=== PATIENT | female | born 1975 | race Caucasian/White ===

== ENCOUNTER 2017-03-12 15:14 | Emergency (ER) | payer BC, MEDICAID ==
[~2017-03-12] VITALS: Ht 160 cm; Wt 90.7 kg
[~2017-03-12 15:14] MED LIST: DAPS25TA PO
[2017-03-12 15:20] VITALS: BP 135/80
[2017-03-12] MEDS ORDERED: CYCLOBENZAPRINE 10 MG TABLET. PO ONE (15:45)
[2017-03-12] MEDS ORDERED: CYCL10TA2 PO (15:48)
[2017-03-12] MEDS ORDERED: METH4TAB2 PO (15:48)
[2017-03-12] MEDS ORDERED: DICL100G7 TP (15:48)
--- NOTE | 2017-03-12 15:48 | PHYS DOC ---
Past Medical History Past Medical History: HIV, TB Past Surgical History: , Tubal ligation, Other Additional Past Surgical Histo: RIGHT ACL REPAIR Alcohol Use: None Drug Use: Marijuana Adult General Chief Complaint Chief Complaint: ELBOW PROBLEM HPI HPI Patient is a 41 year old female with hx of HIV on treatment and who presents with left elbow pain since December 2016. Patient denies any injuries. She states she has followed up with her own primary care doctor who did x-rays of the left elbow in they were negative. She states she was referred to an orthopedic doctor who she saw her on Wednesday, she states the orthopedic doctor at informed her there is nothing he can do for the elbow because there was no acute findings on xray. She states that the orthopedic doctor instructed her to continue taking Aleve. Patient states it's not helping. Patient denies any injury. Patient states she followed up with the neuro doctor who gave her gabapentin for her pain. She states she has poor sensation to the left upper extremity but follows up with the neurologist. She states she has a new grandbaby coming in September and wants to be able to lift her grandbaby. She states nobody has given her any muscle relaxer and attempting to help with the pain. She states she has been given steroid injections to the left wrist before and it did not help with the pain so her doctor could not recommend it for the elbow. Review of Systems Review of Systems Constitutional: Denies fever or chills [] Eyes: Denies change in visual acuity, redness, or eye pain [] HENT: Denies nasal congestion or sore throat [] Musculoskeletal: Left elbow pain Integument: Denies rash or skin lesions [] Neurologic: Denies headache, focal weakness or sensory changes [] Endocrine: Denies polyuria or polydipsia [] Current Medications Current Medications Current Medications Medications (Trade) Dose Ordered Sig/David Start Time Stop Time Status Last Admin Dose Admin Cyclobenzaprine HCl (Flexeril) 10 mg 1X ONCE 03/12/17 15:45 03/12/17 15:46 Prednisone (Prednisone) 60 mg 1X ONCE 03/12/17 16:00 03/12/17 16:01 Allergies Allergies Allergies Coded Allergies Type Severity Reaction Last Updated Verified Penicillins Allergy Unknown Swelling 08/08/14 No Sulfa (Sulfonamide Antibiotics) Allergy Unknown Hives 08/08/14 No latex Allergy Unknown Hives 08/08/14 No meperidine Allergy Unknown Itching 08/08/14 No nitrofurantoin Allergy Unknown Hives 08/08/14 No povidone-iodine Allergy Unknown Itching 08/08/14 No shellfish derived Allergy Unknown Swelling 08/08/14 No Physical Exam Physical Exam Constitutional: Well developed, well nourished, no acute distress, non-toxic appearance. [] HENT: Normocephalic, atraumatic, bilateral external ears normal, oropharynx moist, no oral exudates, nose normal. [] Eyes: PERRLA, EOMI, conjunctiva normal, no discharge. [] Skin: Warm, dry, no erythema, no rash. [] Back: No tenderness, no CVA tenderness. [] Extremities: Left elbow with no edema and no ecchymosis no obvious deformity. No tenderness on palpation of the left elbow. Full active and passive range of motion to the left elbow. Patient able to plantarflex and a flex the left forearm with no difficulties. +2 left radial pulse. Cap refill less than 2 seconds the left upper extremity. Sensation intact to the left upper extremity. Neurologic: Alert and oriented X 3, normal motor function, normal sensory function, no focal deficits noted. [] Psychologic: Affect normal, judgement normal, mood normal. [] Current Patient Data Vital Signs Vital Signs Date Time Temp Pulse Resp B/P (MAP) Pulse Ox O2 Delivery O2 Flow Rate FiO2 03/12/17 15:20 98.2 68 20 98 Room Air 98.2 EKG EKG [] Radiology/Procedures Radiology/Procedures [] Course & Med Decision Making Course & Med Decision Making Pertinent Labs and Imaging studies reviewed. (See chart for details) Patient is in the ED with acute on chronic left elbow pain. She has already had x-rays and followed up with an orthopedic doctor this week. I spoke to patient at length about her symptoms. Recommended she continues taking Aleve. Give her prescription for Voltaren, Flexeril and Medrol Dosepak. Provided another orthopedic doctor in case she does not want to follow-up with her doctor at . Patti Disclaimer Dragon Disclaimer This electronic medical record was generated, in whole or in part, using a voice recognition dictation system. Departure Departure Impression: Primary Impression: Left elbow pain Disposition: 01 HOME, SELF-CARE Condition: STABLE Referrals: YANETH GERMAIN (PCP) Follow-up with your own doctor in one week TITI HORNE MD follow up with your doctor in one week Patient Instructions: Musculoskeletal Pain Additional Instructions: You were seen for left elbow pain. We highly recommend you follow-up with an orthopedic doctor. Continue following up with your own primary care doctor as well. Continue taking Aleve as needed for pain and the other new medicines we put you on Scripts Cyclobenzaprine Hcl (CYCLOBENZAPRINE HCL) 10 Mg Tablet 1 TAB PO TID, #30 TAB Prov: TWILA VALLADARES APRN 03/12/17 Methylprednisolone (MEDROL) 4 Mg Tab.ds.pk 1 PKG PO UD, #1 PKG Prov: TWILA VALLADARES APRN 03/12/17 Diclofenac Sodium (VOLTAREN) 100 Gm Gel..gram. 1 GM TP QID, #100 GM 2 Refills Prov: TWILA VALLADARES APRN 03/12/17 TWILA VALLADARES APRN March 12, 2017 15:48
[2017-03-12] MEDS ORDERED: predniSONE 20 MG TABLET PO ONE (16:00)
== END 2017-03-12 16:05 | disposition home or self-care (01) ==
LOC: ER 16:03
DX: M25.522 Pain in left elbow (principal); F12.10 Cannabis abuse, uncomplicated; Z21 Asymptomatic human immunodeficiency virus [HIV] infection status; Z88.0 Allergy status to penicillin; Z88.2 Allergy status to sulfonamides; Z88.8 Allergy status to other drugs, medicaments and biological substances; Z88.6 Allergy status to analgesic agent; Z91.041 Radiographic dye allergy status; Z91.040 Latex allergy status; Z91.013 Allergy to seafood
CPT/HCPCS: 99283; J7512

== ENCOUNTER 2018-02-28 08:02 | Emergency (ER) | payer OTHER, MEDICAID, BC ==
[2018-02-28] MEDS: KETOROLAC TROMETHAMINE 10 MG TABLET PO (08:34)
[2018-02-28] MEDS: diazePAM 5 MG TABLET PO (08:34)
== END 2018-02-28 09:15 | disposition home or self-care (01) ==
LOC: ER 08:02
DX: M25.521 Pain in right elbow (principal); M25.511 Pain in right shoulder; M79.631 Pain in right forearm; F12.10 Cannabis abuse, uncomplicated; Z88.0 Allergy status to penicillin; Z88.2 Allergy status to sulfonamides; Z88.1 Allergy status to other antibiotic agents; Z91.041 Radiographic dye allergy status; Z91.040 Latex allergy status; Z91.013 Allergy to seafood
CPT/HCPCS: 99283

== ENCOUNTER 2020-04-11 10:56 | Emergency (ER) | payer MEDICAID, OTHER ==
[~2020-04-11] VITALS: Ht 160 cm; Wt 100.0 kg
[~2020-04-11 10:56] MED LIST changes: +CYCL10TA2 PO; +DICL100G54 TP; +KETO10TA PO; +METH4TAB2 PO
--- NOTE | 2020-04-11 11:56 | RAD ---
EXAM: FOOT LEFT 3V 04/11/2020 11:11 AM CLINICAL INDICATION:Fifth toe pain and bruising COMPARISON:None TECHNIQUE:3 views of the left foot FINDINGS:There is a minimally displaced oblique fracture of the little toe proximal phalanx shaft. No intra-articular extension. No other acute fracture or malalignment. There is sequela of old lateral ankle injury. Mild soft tissue swelling along the fifth MTP joint. IMPRESSION:Minimally displaced fracture of the little toe proximal phalanx. Electronically signed by: Rosangela Ennis MD (04/11/2020 11:53 AM) [id number]
[2020-04-11] MEDS ORDERED: HYDR-3164 PO (12:14)
--- NOTE | 2020-04-11 12:14 | PHYS DOC ---
Past Medical History Past Medical History: Arthritis, HIV, TB Past Surgical History: , Tubal ligation, Other Additional Past Surgical Histo: RIGHT ACL REPAIR Smoking Status: Current Every Day Smoker Alcohol Use: None Drug Use: Marijuana, Methamphetamine General Adult EDM: Chief Complaint: TOE PROBLEM HPI: HPI: Patient is a 44 year old female presents with report of left pinky toe pain and swelling. Reports worse with ambulation. Reports originally injured it while shopping at grocery store on 04/08/20. Reports she accidentally "rammed" her toe into a wooden pallet on the ground. Reports was wearing flip flops. Reports signficiant pain and bruising/swelling followed. Patient reports she had delayed evaluation because she thought it would get better on it's own. Reports pain and swelling still presented and therefore decided to present to the ED for evaluation. Review of Systems: Review of Systems: Constitutional: Denies fever or chills Musculoskeletal: Denies neck pain; reports pain to left pinky toe Integument: Denies laceration; reports bruising and swelling to left pinky toe Neurologic: Denies headache, focal weakness or sensory changes Complete systems were reviewed and found to be within normal limits, except as documented in this note. Allergies: Allergies: Allergies Coded Allergies Type Severity Reaction Last Updated Verified Penicillins Allergy Intermediate Swelling 02/28/18 No Sulfa (Sulfonamide Antibiotics) Allergy Intermediate Hives 02/28/18 No latex Allergy Intermediate Hives 02/28/18 No nitrofurantoin Allergy Intermediate Hives 02/28/18 No shellfish derived Allergy Intermediate Swelling 02/28/18 No meperidine Adverse Reaction Unknown Itching 02/28/18 No povidone-iodine Adverse Reaction Unknown Itching 02/28/18 No Physical Exam: PE: Constitutional: Well developed, well nourished, no acute distress, non-toxic appearance HENT: Normocephalic, atraumatic Eyes: Conjunctiva normal, no discharge Neck: Normal range of motion, no tenderness, supple Cardiovascular: Left PT and DP +2, CR < 2 sec Lungs & Thorax: No respiratory distress, equal chest rise and fall Skin: Warm, dry, no erythema, bruising noted as below Extremities: Left 5th toe with swelling, bruising, and tenderness on palpation Neurologic: Alert and oriented X 3, normal motor function, normal sensory function, no focal deficits noted Psychologic: Affect normal, judgment normal Current Patient Data: Vital Signs: Vital Signs Date Time Temp Pulse Resp B/P (MAP) Pulse Ox O2 Delivery O2 Flow Rate FiO2 04/11/20 11:05 98.2 71 16 173/97 (122) 98 Room Air 98.2 EKG: EKG: [] Radiology/Procedures: Radiology/Procedures: PROCEDURE: FOOT LEFT 3V EXAM: FOOT LEFT 3V 04/11/2020 11:11 AM CLINICAL INDICATION:Fifth toe pain and bruising COMPARISON:None TECHNIQUE:3 views of the left foot FINDINGS:There is a minimally displaced oblique fracture of the little toe proximal phalanx shaft. No intra-articular extension. No other acute fracture or malalignment. There is sequela of old lateral ankle injury. Mild soft tissue swelling along the fifth MTP joint. IMPRESSION:Minimally displaced fracture of the little toe proximal phalanx. Electronically signed by: Rosangela Ennis MD (04/11/2020 11:53 AM) [id number] Course & Med Decision Making: Course & Med Decision Making Pertinent Imaging studies reviewed. (See chart for details) Patient presents with history of pain to left 5th toe. Bruising/swelling noted. XR with findings confirming fracture to proximal phalanx. ICE applied. Post op shoe provided with crutches. Patient stable for discharge with outpatient follow-up with PCP/Orthopedics. Discussed findings and plan with patient, who acknowledges understanding and agreement. Patti Disclaimer: Patti Disclaimer: This electronic medical record was generated, in whole or in part, using a voice recognition dictation system. Departure Departure Impression: Primary Impression: Toe fracture, left Qualified Codes: S92.512A - Displaced fracture of proximal phalanx of left lesser toe(s), initial encounter for closed fracture Disposition: HOME, SELF-CARE Condition: STABLE Referrals: KIRA DIAZ MD (PCP) JAZMÍN JEROME MD Patient Instructions: Cast or Splint Care, [id number], Crutch Use, [id number], Toe Fracture, [id number] Scripts Hydrocodone/Apap 5-325 (NORCO 5-325 TABLET) 1 Each Tablet 0.5-1 TAB PO PRN Q6HRS PRN for PAIN, #10 TAB 0 Refills Prov: JOSSELINE MONTEJO DO 04/11/20 Justicifation of Admission Dx: Justifications for Admission: Justification of Admission Dx: N/A Splinting Splinting : Location: Left foot Pre-Made Type: Post op shoe Pre-Proc Neuro Vasc Exam: normal Post-Proc Neuro Vasc Exam: normal, unchanged from pre-exam JOSSELINE MONTEJO DO Apr 11, 2020 12:14
[2020-04-11 12:20] VITALS: BP 157/93
== END 2020-04-11 12:25 | disposition home or self-care (01) ==
LOC: ER 10:56
DX: S92.512A Displaced fracture of proximal phalanx of left lesser toe(s), initial encounter for closed fracture (principal); R60.0 Localized edema; M19.90 Unspecified osteoarthritis, unspecified site; A15.9 Respiratory tuberculosis unspecified; F17.200 Nicotine dependence, unspecified, uncomplicated; F12.90 Cannabis use, unspecified, uncomplicated; Z98.890 Other specified postprocedural states; Z21 Asymptomatic human immunodeficiency virus [HIV] infection status; X58.XXXA Exposure to other specified factors, initial encounter; Y93.89 Activity, other specified; Y92.89 Other specified places as the place of occurrence of the external cause; Y99.8 Other external cause status
CPT/HCPCS: 73630; 99283

== ENCOUNTER 2020-08-26 09:04 | Emergency (ER) | payer OTHER ==
[~2020-08-26] VITALS: Ht 160 cm; Wt 98.0 kg
[~2020-08-26 09:04] MED LIST changes: +HYDR-3164 PO
[2020-08-26] MEDS ORDERED: KETOROLAC 30 MG/ML VIAL. IVP ONE (11:00)
[2020-08-26 11:04] LABS: COLOR,URINE RED
[2020-08-26 11:05] LABS: CLARITY,URINE TURBID
[2020-08-26 11:08] LABS: BACTERIA,URINE FEW /HPF (0-FEW); RBC,URINE TNTC /HPF (0-2); WBC,URINE FIELD OBSCURED /HPF (0-4)
--- NOTE | 2020-08-26 11:33 | PHYS DOC ---
Past Medical History Past Medical History: Arthritis, HIV, TB Past Surgical History: , Tubal ligation, Other Additional Past Surgical Histo: RIGHT ACL REPAIR Smoking Status: Current Every Day Smoker Alcohol Use: None Drug Use: Marijuana, Methamphetamine General Adult EDM: Chief Complaint: FLANK PAIN HPI: HPI: Patient is a 44 year old female who presented to ER for evaluation of right flank pain that radiated to her right hip area started last night. Patient says she started her period this morning and feels it might be her period but the pain is more severe and persistent. Patient denies any fever, no cough, no nausea vomiting. Review of Systems: Review of Systems: Constitutional: Denies fever or chills. [] Eyes: Denies change in visual acuity. [] HENT: Denies nasal congestion or sore throat. [] Respiratory: Denies cough or shortness of breath. [] Cardiovascular: Denies chest pain or edema. [] GI: Positive for right flank pain, no nausea vomiting, no diarrhea : Denies dysuria. [] Musculoskeletal: Denies back pain or joint pain. [] Integument: Denies rash. [] Neurologic: Denies headache, focal weakness or sensory changes. [] Endocrine: Denies polyuria or polydipsia. [] Lymphatic: Denies swollen glands. [] Psychiatric: Denies depression or anxiety. [] Heart Score: Risk Factors: Risk Factors: DM, Current or recent (<one month) smoker, HTN, HLP, family history of CAD, obesity. Risk Scores: Score 0 - 3: 2.5% MACE over next 6 weeks - Discharge Home Score 4 - 6: 20.3% MACE over next 6 weeks - Admit for Clinical Observation Score 7 - 10: 72.7% MACE over next 6 weeks - Early Invasive Strategies Current Medications: Current Medications Medications (Trade) Dose Ordered Sig/David Start Time Stop Time Status Last Admin Dose Admin Ketorolac Tromethamine (Toradol 30mg Vial) 30 mg 1X ONCE 08/26/20 11:00 08/26/20 11:01 DC 08/26/20 11:12 30 MG Allergies: Allergies: Allergies Coded Allergies Type Severity Reaction Last Updated Verified Penicillins Allergy Intermediate Swelling 02/28/18 No Sulfa (Sulfonamide Antibiotics) Allergy Intermediate Hives 02/28/18 No latex Allergy Intermediate Hives 02/28/18 No nitrofurantoin Allergy Intermediate Hives 02/28/18 No shellfish derived Allergy Intermediate Swelling 02/28/18 No meperidine Adverse Reaction Unknown Itching 02/28/18 No povidone-iodine Adverse Reaction Unknown Itching 02/28/18 No Physical Exam: PE: Constitutional: Well developed, well nourished, no acute distress, non-toxic appearance. [] HENT: Normocephalic, atraumatic, bilateral external ears normal, oropharynx moist, no oral exudates, nose normal. [] Eyes: PERRLA, EOMI, conjunctiva normal, no discharge. [] Neck: Normal range of motion, no tenderness, supple, no stridor. [] Cardiovascular:Heart rate regular rhythm, no murmur [] Lungs & Thorax: Bilateral breath sounds clear to auscultation [] Abdomen: Bowel sounds normal, soft, no tenderness, no masses, no pulsatile masses. [] Skin: Warm, dry, no erythema, no rash. [] Back: No tenderness, no CVA tenderness. [] Extremities: No tenderness, no cyanosis, no clubbing, ROM intact, no edema. [] Neurologic: Alert and oriented X 3, normal motor function, normal sensory function, no focal deficits noted. [] Psychologic: Affect normal, judgement normal, mood normal. [] Current Patient Data: Labs: Laboratory Tests Test 08/26/20 10:09 08/26/20 10:47 POC Urine HCG, Qualitative Hcg negative (Negative) Urine Collection Type Unknown Urine Color Red Urine Clarity Turbid Urine pH (<5.0-8.0) Urine Specific [place] (1.000-1.030) Urine Protein mg/dL (NEG-TRACE) Urine Glucose (UA) mg/dL (NEG) Urine Ketones (Stick) mg/dL (NEG) Urine Blood (NEG) Urine Nitrite (NEG) Urine Bilirubin (NEG) Urine Urobilinogen Dipstick mg/dL (0.2 mg/dL) Urine Leukocyte Esterase (NEG) Urine RBC Tntc /HPF (0-2) Urine WBC Field obscured /HPF (0-4) Urine Squamous Epithelial Cells Occ /LPF Urine Bacteria Few /HPF (0-FEW) Urine Mucus Slight /LPF Vital Signs: Vital Signs Date Time Temp Pulse Resp B/P (MAP) Pulse Ox O2 Delivery O2 Flow Rate FiO2 08/26/20 09:46 97.7 52 16 172/97 (122) 97 Room Air 97.7 EKG: EKG: [] Radiology/Procedures: Radiology/Procedures: [facility] [address] [place] [address] IMAGING REPORT Signed PATIENT: COLT RENEE ACCOUNT: [id number] : 1975 LOCATION: ER AGE: 44 SEX: F EXAM STATUS: REG ER ORD. PHYSICIAN: ALYSIA FERNANDEZ DO REASON: RIGHT FLANK PAIN PROCEDURE: CT ABDOMEN PELVIS WO CONTRAST Examination: CT ABDOMEN PELVIS WO CONTRAST History: Reason: RIGHT FLANK PAIN / Comparison/Correlation: None Findings: Axial images of the abdomen and pelvis were obtained without contrast. Sagittal and coronal reformatted images were provided. Calcified granulomas involving the left lung base. Marked fatty infiltration of the liver is present. Gallbladder fossa is unremarkable. Spleen is unremarkable. Small hiatal hernia is present. Pancreas is normal. Adrenal glands are overall unremarkable although there is a 1.6 cm diameter left adrenal gland nodule with density compatible with a benign adenoma. No radiopaque collecting system calculi identified. No enlarged abdominal or pelvic lymph nodes. No bowel obstruction or extraluminal gas. Appendix is normal. Urinary bladder is mostly decompressed. Uterus has a nodular contour which may represent fibroid involvement. Significant L5-S1 disc space narrowing is present. This osteophyte complex is notable. Impression: Fatty infiltration of the liver. No radiopaque collecting system calculi or evidence of collecting system obstruction. Appendix is normal. No inflammatory process. Fibroid uterus suspected. PQRS Compliance Statement: One or more of the following individualized dose reduction techniques were utilized for this examination: 1. Automated exposure control 2. Adjustment of the mA and/or kV according to patient size 3. Use of iterative reconstruction technique Electronically signed by: Jairon Briggs MD (08/26/2020 11:46 AM) [id number] DICTATED and SIGNED BY: JAIRON BRIGGS MD DATE: 08/26/20 1146 Course & Med Decision Making: Course & Med Decision Making Pertinent Labs and Imaging studies reviewed. (See chart for details) [] Dragon Disclaimer: Dragon Disclaimer: This electronic medical record was generated, in whole or in part, using a voice recognition dictation system. Departure Departure Impression: Primary Impression: Fibroid, uterine Disposition: 01 DC HOME SELF CARE/HOMELESS Condition: IMPROVED Referrals: KIRA DIAZ MD (PCP) PARKER PAGAN Jr, MD please call this [facility] doctor for outpatient follow up next week. Patient Instructions: Fibroids, [id number] Additional Instructions: Thank you for visiting our Emergency Department. We appreciate you trusting us with your care. If any additional problems come up don't hesitate to return to visit us. Please follow up with your primary care provider so they can plan additional care if needed and know about the problem that you had. If symptoms worsen come back to the Emergency Department. Any concerning symptoms that start such as chest pain, shortness of air, weakness or numbness on one side of the body, running high fevers or any other concerning symptoms return to the ER. Scripts Tramadol Hcl (TRAMADOL HCL) 50 Mg Tablet 50 MG PO Q6HRS PRN for PAIN, #15 TAB Prov: ALYSIA FERNANDEZ DO 08/26/20 Naproxen Sodium (ANAPROX DS) 550 Mg Tablet 1 TAB PO BID PRN for PAIN for 15 Days, #30 TAB 0 Refills Prov: ALYSIA FERNANDEZ DO 08/26/20 ALSYIA FERNANDEZ DO Aug 26, 2020 11:33
--- NOTE | 2020-08-26 11:49 | RAD ---
Examination: CT ABDOMEN PELVIS WO CONTRAST History: Reason: RIGHT FLANK PAIN / Comparison/Correlation: None Findings: Axial images of the abdomen and pelvis were obtained without contrast. Sagittal and coronal reformatted images were provided. Calcified granulomas involving the left lung base. Marked fatty infiltration of the liver is present. Gallbladder fossa is unremarkable. Spleen is unremarkable. Small hiatal hernia is present. Pancreas is normal. Adrenal glands are overall unremarkable although there is a 1.6 cm diameter left adrenal gland nodule with density compatible with a benign adenoma. No radiopaque collecting system calculi identified. No enlarged abdominal or pelvic lymph nodes. No bowel obstruction or extraluminal gas. Appendix is normal. Urinary bladder is mostly decompressed. Uterus has a nodular contour which may represent fibroid involvement. Significant L5-S1 disc space narrowing is present. This osteophyte complex is notable. Impression: Fatty infiltration of the liver. No radiopaque collecting system calculi or evidence of collecting system obstruction. Appendix is normal. No inflammatory process. Fibroid uterus suspected. PQRS Compliance Statement: One or more of the following individualized dose reduction techniques were utilized for this examination: 1. Automated exposure control 2. Adjustment of the mA and/or kV according to patient size 3. Use of iterative reconstruction technique Electronically signed by: Jairon Marin MD (08/26/2020 11:46 AM) [id number]
[2020-08-26 12:53] VITALS: BP 180/94
[2020-08-26] MEDS ORDERED: NAPR-682 PO (12:56)
[2020-08-26] MEDS ORDERED: TRAM50TA PO (12:56)
== END 2020-08-26 13:40 | disposition home or self-care (01) ==
LOC: ER 09:04
DX: D25.9 Leiomyoma of uterus, unspecified (principal); R10.9 Unspecified abdominal pain; M19.90 Unspecified osteoarthritis, unspecified site; F17.200 Nicotine dependence, unspecified, uncomplicated; F12.90 Cannabis use, unspecified, uncomplicated; Z98.890 Other specified postprocedural states; Z98.51 Tubal ligation status
CPT/HCPCS: 74176; 81001; 81025; 87086; 96374; 99285; J1885

== ENCOUNTER 2020-09-24 11:39 | Emergency (ER) | payer OTHER ==
[~2020-09-24] VITALS: Ht 160 cm; Wt 100.0 kg
[~2020-09-24 11:39] MED LIST changes: +NAPR-682 PO; +TRAM50TA PO
[2020-09-24 12:19] VITALS: BP 186/96
[2020-09-24] MEDS ORDERED: predniSONE 20 MG TABLET PO ONE (13:00)
[2020-09-24] MEDS ORDERED: ACETAMINOPHEN/CODEINE 300/30MG TABLET. PO ONE (13:15)
--- NOTE | 2020-09-24 13:16 | RAD ---
INDICATION: Reason: cough / Spl. Instructions: / History: COMPARISON: None. FINDINGS: Single view of chest obtained. Numerous nodular opacities are seen within the lungs most prominent at the right upper lung. Cardiac silhouette is unremarkable. IMPRESSION: * Numerous nodular opacities within the right greater than left lung. Differential considerations would include infectious or inflammatory nodules or sequela of granulomatous disease but neoplastic causes are also within the differential. Would consider obtaining CT of the chest to further assess whether these are calcified or noncalcified. Electronically signed by: Alo Woods MD (09/24/2020 1:13 PM) [id number]
--- NOTE | 2020-09-24 14:18 | RAD ---
CT CHEST WO CONTRAST INDICATION: cough, SOA COMPARISON STUDY: Radiograph 09/24/2020. TECHNIQUE: Unenhanced axial images were obtained through the lungs and upper abdomen. Coronal and sagittal multiplanar reconstructions were also obtained. PQRS compliance statement: One or more of the following individualized dose reduction techniques were utilized for this examination: 1. Automated exposure control 2. Adjustment of the mA and/or kV according to patient size 3. Use of iterative reconstruction technique FINDINGS: Lungs and Airways: Numerous calcified and noncalcified small pulmonary nodules involving the right upper lobe, and to a lesser extent the left upper lobe. Paraseptal and centrilobular emphysema. Normal central airways. Pleura: The pleural spaces are normal. Heart and Mediastinum: The visualized thyroid gland is normal in size and attenuation. No axillary or supraclavicular lymphadenopathy. No mediastinal, hilar or retrocrural lymphadenopathy. Normal cardiac size. No pericardial effusion. Coronary artery atherosclerotic disease. The great vessels of the thorax are normal. Abdomen: The visualized abdominal organs demonstrate no abnormality. Bones and Soft Tissues: Degenerative changes of the spine. IMPRESSION: 1. Numerous calcified and noncalcified pulmonary nodules involving the right upper lobe and to lesser extent the left upper lobe. Imaging features favor remote granulomatous disease, however consider 3-6 month follow-up unenhanced chest CT to assess stability of noncalcified nodules, given emphysema. 2. Coronary artery atherosclerotic disease. Electronically signed by: Bora Escalona MD (09/24/2020 2:16 PM) [id number]
--- NOTE | 2020-09-24 15:08 | PHYS DOC ---
Past Medical History Past Medical History: Arthritis, HIV, Hypertension, TB Past Surgical History: , Tubal ligation, Other Additional Past Surgical Histo: RIGHT ACL REPAIR Smoking Status: Current Every Day Smoker Alcohol Use: None Drug Use: Marijuana, Methamphetamine General Adult EDM: Chief Complaint: HEADACHE HPI: HPI: Patient is a 44 year old female with a history of HIV, currently under control per her statement, hypertension, tuberculosis when he had active infection for her HIV, who presents to the ED today complaining of 6 out of 10 frontal headache with sneezing and a cough for 3 days. Patient reports history of smoking. Denies any fever. Denies any nausea vomiting. Denies any chest pain or shortness of breath. Denies anything specifically exacerbating or relieving his symptoms. Patient describes the headache as throbbing and intermittent. Review of Systems: Review of Systems: Constitutional: Denies fever or chills. [] Eyes: Denies change in visual acuity. [] HENT: Reports sneezing. Denies nasal congestion or sore throat. [] Respiratory: Reports cough, denies shortness of breath. [] Cardiovascular: Denies chest pain or edema. [] GI: Denies abdominal pain, nausea, vomiting, bloody stools or diarrhea. [] : Denies dysuria. [] Musculoskeletal: Denies back pain or joint pain. [] Integument: Denies rash. [] Neurologic: Reports headache, denies focal weakness or sensory changes. [] Psychiatric: Denies depression or anxiety. [] Heart Score: Risk Factors: Risk Factors: DM, Current or recent (<one month) smoker, HTN, HLP, family history of CAD, obesity. Risk Scores: Score 0 - 3: 2.5% MACE over next 6 weeks - Discharge Home Score 4 - 6: 20.3% MACE over next 6 weeks - Admit for Clinical Observation Score 7 - 10: 72.7% MACE over next 6 weeks - Early Invasive Strategies Current Medications: Current Medications Medications (Trade) Dose Ordered Sig/David Start Time Stop Time Status Last Admin Dose Admin Acetaminophen/ Codeine Phosphate (Tylenol #3) 1 tab 1X ONCE 09/24/20 13:15 09/24/20 13:16 DC 09/24/20 13:15 1 TAB Prednisone (Prednisone) 60 mg 1X ONCE 09/24/20 13:00 09/24/20 13:01 DC 09/24/20 13:15 60 MG Allergies: Allergies: Allergies Coded Allergies Type Severity Reaction Last Updated Verified Penicillins Allergy Intermediate Swelling 02/28/18 No Sulfa (Sulfonamide Antibiotics) Allergy Intermediate Hives 02/28/18 No latex Allergy Intermediate Hives 02/28/18 No nitrofurantoin Allergy Intermediate Hives 02/28/18 No shellfish derived Allergy Intermediate Swelling 02/28/18 No meperidine Adverse Reaction Unknown Itching 02/28/18 No povidone-iodine Adverse Reaction Unknown Itching 02/28/18 No Physical Exam: PE: Constitutional: Well developed, well nourished, no acute distress, non-toxic appearance. [] HENT: Normocephalic, atraumatic, bilateral external ears normal, oropharynx moist, no oral exudates, nose normal. [] Eyes: PERRLA, EOMI, conjunctiva normal, no discharge. [] Neck: Normal range of motion, no tenderness, supple, no stridor. [] Cardiovascular:Heart rate regular rhythm, no murmur [] Lungs & Thorax: Bilateral breath sounds clear to auscultation [] Abdomen: Bowel sounds normal, soft, no tenderness, no masses, no pulsatile masses. [] Skin: Warm, dry, no erythema, no rash. [] Back: No tenderness, no CVA tenderness. [] Extremities: No tenderness, no cyanosis, no clubbing, ROM intact, no edema. [] Neurologic: Alert and oriented X 3, normal motor function, normal sensory function, no focal deficits noted. Cranial nerves II through XII intact Psychologic: Affect normal, judgement normal, mood normal. [] Current Patient Data: Vital Signs: Vital Signs Date Time Temp Pulse Resp B/P (MAP) Pulse Ox O2 Delivery O2 Flow Rate FiO2 09/24/20 12:19 98.3 68 20 186/96 (126) 97 Room Air 98.3 EKG: EKG: [] Radiology/Procedures: Radiology/Procedures: []PROCEDURE: CHEST AP ONLY INDICATION: Reason: cough / Spl. Instructions: / History: COMPARISON: None. FINDINGS: Single view of chest obtained. Numerous nodular opacities are seen within the lungs most prominent at the right upper lung. Cardiac silhouette is unremarkable. IMPRESSION: * Numerous nodular opacities within the right greater than left lung. Differential considerations would include infectious or inflammatory nodules or sequela of granulomatous disease but neoplastic causes are also within the differential. Would consider obtaining CT of the chest to further assess whether these are calcified or noncalcified. Electronically signed by: Dominguez Henley MD (09/24/2020 1:13 PM) [id number] DICTATED and SIGNED BY: DOMINGUEZ HENLEY MD DATE: 09/24/20 [id number] PROCEDURE: CT CHEST WO CONTRAST CT CHEST WO CONTRAST INDICATION: cough, SOA COMPARISON STUDY: Radiograph 09/24/2020. TECHNIQUE: Unenhanced axial images were obtained through the lungs and upper abdomen. Coronal and sagittal multiplanar reconstructions were also obtained. PQRS compliance statement: One or more of the following individualized dose reduction techniques were utilized for this examination: 1. Automated exposure control 2. Adjustment of the mA and/or kV according to patient size 3. Use of iterative reconstruction technique FINDINGS: Lungs and Airways: Numerous calcified and noncalcified small pulmonary nodules involving the right upper lobe, and to a lesser extent the left upper lobe. Paraseptal and centrilobular emphysema. Normal central airways. Pleura: The pleural spaces are normal. Heart and Mediastinum: The visualized thyroid gland is normal in size and attenuation. No axillary or supraclavicular lymphadenopathy. No mediastinal, hilar or retrocrural lymphadenopathy. Normal cardiac size. No pericardial effusion. Coronary artery atherosclerotic disease. The great vessels of the thorax are normal. Abdomen: The visualized abdominal organs demonstrate no abnormality. Bones and Soft Tissues: Degenerative changes of the spine. IMPRESSION: 1. Numerous calcified and noncalcified pulmonary nodules involving the right upper lobe and to lesser extent the left upper lobe. Imaging features favor remote granulomatous disease, however consider 3-6 month follow-up unenhanced chest CT to assess stability of noncalcified nodules, given emphysema. 2. Coronary artery atherosclerotic disease. Electronically signed by: Amando Escalona MD (09/24/2020 2:16 PM) [id number] DICTATED and SIGNED BY: AMANDO ESCALONA MD DATE: 09/24/20 [id number] Course & Med Decision Making: Course & Med Decision Making Pertinent Labs and Imaging studies reviewed. (See chart for details) This is a 44-year-old female patient presenting to the ED today with cough, headache, sneezing, symptoms for 3 days. Patient was tested for COVID-19. Chest x-ray interpreted by radiologist was noted for numerous opacities within the right greater than left lung, radiology recommended CT of the chest. CT of the chest noted for numerous calcified and noncalcified pulmonary nodules involving the right upper lobe and to lesser extent the left upper lobe. Imaging features favor remote granulomatous disease, however consider 3-6 month follow- up unenhanced chest CT to assess stability of noncalcified nodules,given emphysema. Coronary artery atherosclerotic disease. Patient reports history of TB. Was discharged to home follow-up with PCP. Instructed to quarantine herself. Dragon Disclaimer: Dragon Disclaimer: This electronic medical record was generated, in whole or in part, using a voice recognition dictation system. Departure Departure Impression: Primary Impression: Headache Qualified Codes: R51.9 - Headache, unspecified Additional Impressions: Cough Pulmonary nodule Person under investigation for COVID-19 Disposition: 01 DC HOME SELF CARE/HOMELESS Condition: STABLE Referrals: KIRA DIAZ MD (PCP) follow up in one week Patient Instructions: Cough, Adult, Headache, FAQs Additional Instructions: You were evaluated in the emergency room, we tested you for COVID-19. Quarantine yourself until you get results from us. You can take Tylenol or Motrin for your headache. Follow-up with your primary care doctor regarding the nodules in your lung TWILA VALLADARES APRN Sep 24, 2020 15:08
== END 2020-09-24 15:17 | disposition home or self-care (01) ==
LOC: ER 11:39
DX: R51.9 Headache, unspecified (principal); Z20.828 Contact with and (suspected) exposure to other viral communicable diseases; R05 Cough; R91.1 Solitary pulmonary nodule; M19.90 Unspecified osteoarthritis, unspecified site; I10 Essential (primary) hypertension; F17.200 Nicotine dependence, unspecified, uncomplicated; F12.90 Cannabis use, unspecified, uncomplicated; Z98.890 Other specified postprocedural states; Z98.51 Tubal ligation status; Z21 Asymptomatic human immunodeficiency virus [HIV] infection status
CPT/HCPCS: 71045; 71250; 99285; C9803; J7512; U0003